=== PATIENT | female | born 1975 | race Caucasian/White ===

== ENCOUNTER 2016-10-18 16:51 | Emergency (ER) | payer SELFPAY ==
[~2016-10-18] VITALS: Ht 157.5 cm; Wt 78.0 kg
[~2016-10-18 16:51] MED LIST: CALC1TAB17 PO; IBUP100T7 PO; PREN-142 PO; TRAM50TA3 PO
[2016-10-18 20:43] VITALS: BP 103/69
== END 2016-10-18 21:04 | disposition home or self-care (01) ==
LOC: ER 21:02
DX: J02.9 Acute pharyngitis, unspecified (principal); R01.1 Cardiac murmur, unspecified; Z98.890 Other specified postprocedural states
CPT/HCPCS: 99283

== ENCOUNTER 2017-03-11 19:28 | Emergency (ER) | payer OTHER ==
[~2017-03-11] VITALS: Ht 165.1 cm; Wt 69.0 kg
[2017-03-12 04:26] VITALS: BP 94/68
== END 2017-03-12 04:28 | disposition home or self-care (01) ==
LOC: ER 20:38
DX: J06.9 Acute upper respiratory infection, unspecified (principal); H66.93 Otitis media, unspecified, bilateral
CPT/HCPCS: 81025; 99283

== ENCOUNTER 2017-04-28 21:03 | Emergency (ER) | payer OTHER ==
[~2017-04-28] VITALS: Ht 157.5 cm; Wt 79.0 kg
[2017-04-28] MEDS ORDERED: KETOROLAC 60MG/2ML VIAL IM ONE (23:45)
[2017-04-28 23:59] LABS: BASOPHILS % 0.9 % (0.0-2.0); EOSINOPHILS % 1.1 % (0.0-5.0); HEMOGLOBIN. 13.6 g/dL (12.0-16.0); LYMPHOCYTES % 38.4 % (20.0-50.0); MEAN CORPUSCULAR HEMOGLOBIN 29.9 pg (28.0-32.0); MEAN PLATELET VOLUME 8.4 fl (7.4-10.4); MONOCYTES % 9.4 % (2.0-8.0); NEUTROPHILS % 50.2 % (40.0-76.0); PLATELET 254 x1000/uL (130-400); RED BLOOD CELL COUNT 4.54 mill/uL (4.2-5.4); RED CELL DISTRIBUTION WIDTH 12.7 % (11.6-14.6)
[2017-04-29 00:36] LABS: CARBON DIOXIDE 28 mEq/L (21-32); CHLORIDE 108 mEq/L (98-107); TROPONIN I < 0.02 ng/mL (0.00-0.04)
[2017-04-29 01:30] VITALS: BP 134/76
== END 2017-04-29 01:52 | disposition home or self-care (01) ==
LOC: ER 21:04
DX: R07.89 Other chest pain (principal); F17.200 Nicotine dependence, unspecified, uncomplicated; Z90.49 Acquired absence of other specified parts of digestive tract; Z98.890 Other specified postprocedural states
CPT/HCPCS: 36415; 71010; 80053; 81025; 84484; 85025; 85379; 93005; 96372; 99285; J1885

== ENCOUNTER 2017-06-12 19:46 | Emergency (ER) | payer MEDICAID, OTHER ==
[~2017-06-12] VITALS: Ht 157.5 cm; Wt 82.0 kg
[2017-06-13 07:12] LABS: EOSINOPHILS % 0.7 % (0.0-5.0); HEMATOCRIT. 37.8 % (36.0-48.0); HEMOGLOBIN. 12.7 g/dL (12.0-16.0); LYMPHOCYTES % 30.7 % (20.0-50.0); MEAN CORPUSCULAR HEMOGLOBIN 29.4 pg (28.0-32.0); MEAN CORPUSCULAR VOLUME 87.1 fL (81.0-99.0); MEAN PLATELET VOLUME 7.8 fl (7.4-10.4); MONOCYTES % 6.7 % (2.0-8.0); NEUTROPHILS % 60.9 % (40.0-76.0); PLATELET 296 x1000/uL (130-400); RED BLOOD CELL COUNT 4.34 mill/uL (4.2-5.4); RED CELL DISTRIBUTION WIDTH 13.7 % (11.6-14.6)
[2017-06-13 07:24] LABS: CARBON DIOXIDE 29 mEq/L (21-32); CHLORIDE 106 mEq/L (98-107)
[2017-06-13 07:40] LABS: CLARITY URINE CLEAR (CLEAR); COLOR URINE YELLOW (YELLOW); KETONES URINE NEGATIVE (NEGATIVE); LEUKOCYTE ESTERASE URINE NEGATIVE (NEGATIVE); NITRITE URINE NEGATIVE (NEGATIVE); OCCULT BLOOD URINE TRACE (NEGATIVE); PROTEIN URINE NEGATIVE (NEGATIVE); SPECIFIC GRAVITY URINE 1.027 (1.005-1.030)
[2017-06-13] MEDS ORDERED: KETOROLAC 60MG/2ML VIAL IM STA (09:03)
[2017-06-13 10:16] VITALS: BP 107/70
== END 2017-06-13 10:18 | disposition home or self-care (01) ==
LOC: ER 19:46
DX: N39.0 Urinary tract infection, site not specified (principal); R10.31 Right lower quadrant pain; Z90.49 Acquired absence of other specified parts of digestive tract
CPT/HCPCS: 36415; 76770; 80053; 81001; 81025; 83690; 85025; 96372; 99285; J1885

== ENCOUNTER 2017-08-09 10:59 | Emergency (ER) | payer MEDICAID ==
[~2017-08-09] VITALS: Ht 157.5 cm; Wt 77.0 kg
[2017-08-09] MEDS ORDERED: IBUPROFEN 600MG TABLET PO ONE (14:45)
[2017-08-09 15:11] VITALS: BP 101/77
== END 2017-08-09 15:17 | disposition home or self-care (01) ==
LOC: ER 12:42
DX: J20.9 Acute bronchitis, unspecified (principal); R01.1 Cardiac murmur, unspecified; Z98.890 Other specified postprocedural states; Z90.49 Acquired absence of other specified parts of digestive tract
CPT/HCPCS: 71045; 81025; 87804; 93005; 99285

== ENCOUNTER 2018-03-31 19:50 | Emergency (ER) | payer MEDICAID ==
[~2018-03-31] VITALS: Ht 157.5 cm; Wt 75.0 kg
[2018-04-01] MEDS ORDERED: SODIUM CHLORIDE 0.9% 1,000 ML IV ONE (00:25)
[2018-04-01] MEDS ORDERED: KETOROLAC 30MG/ML VIAL IV STA (00:25)
[2018-04-01 01:06] LABS: EOSINOPHILS % 1.5 % (0.0-5.0); HEMATOCRIT. 39.7 % (36.0-48.0); HEMOGLOBIN. 13.4 g/dL (12.0-16.0); LYMPHOCYTES % 32.9 % (20.0-50.0); MEAN CORPUSCULAR HEMOGLOBIN 29.8 pg (28.0-32.0); MEAN CORPUSCULAR VOLUME 88.5 fL (81.0-99.0); MEAN PLATELET VOLUME 8.8 fl (7.4-10.4); MONOCYTES % 6.3 % (2.0-8.0); NEUTROPHILS % 58.3 % (40.0-76.0); PLATELET 328 x1000/uL (130-400); RED BLOOD CELL COUNT 4.49 mill/uL (4.2-5.4); RED CELL DISTRIBUTION WIDTH 13.1 % (11.6-14.6)
[2018-04-01 01:08] LABS: CHLORIDE 105 mEq/L (98-107)
[2018-04-01 03:48] VITALS: BP 106/65
== END 2018-04-01 03:55 | disposition home or self-care (01) ==
LOC: ER 21:34
DX: R07.89 Other chest pain (principal); E11.9 Type 2 diabetes mellitus without complications; Z79.899 Other long term (current) drug therapy
CPT/HCPCS: 36415; 71045; 80053; 81025; 84484; 85025; 85379; 93005; 96361; 96374; 99285; J1885; J7030

== ENCOUNTER 2021-07-25 10:36 | Emergency (ER) | payer MEDICAID ==
[~2021-07-25] VITALS: Ht 157.5 cm; Wt 71.0 kg
[~2021-07-25 10:36] MED LIST changes: +ALBU6.7H9 ORI; -CALC1TAB17 PO; +FAMO-135 PO; +GABA-532 PO; -IBUP100T7 PO; +METF-874 PO; +MIDO5TAB4 PO; +NAPR-677 PO; -PREN-142 PO; -TRAM50TA3 PO
[2021-07-25] MEDS ORDERED: ACETAMINOPHEN WITH CODEINE 300/30MG TABLET PO ONE (10:45)
[2021-07-25] MEDS ORDERED: BACITRACIN ZINC OINT UDPKT TOP ONE (10:45)
[2021-07-25] MEDS ORDERED: TETANUS, DIPHTHERIA, PERTUSSIS VAC/PF 0.5ML (>10YR OLD) IM ONE (10:45)
[2021-07-25 11:13] VITALS: BP 109/68
[2021-07-25] MEDS: LIDOCAINE HCL/PF 1% 10 MG/ML 5ML VIAL INFIL ONE ×3 (11:13→11:25)
[2021-07-25] MEDS ORDERED: LIDOCAINE HCL 1% 20ML VIAL (Pyxis) INJ INFIL NR (11:15)
[2021-07-25] MEDS ORDERED: BO1 TP (11:30)
== END 2021-07-25 12:23 | disposition home or self-care (01) ==
LOC: ER 10:36
DX: S61.211A Laceration without foreign body of left index finger without damage to nail, initial encounter (principal); X58.XXXA Exposure to other specified factors, initial encounter; Y93.89 Activity, other specified; Y92.89 Other specified places as the place of occurrence of the external cause; Y99.8 Other external cause status; E11.9 Type 2 diabetes mellitus without complications; I10 Essential (primary) hypertension; Z90.49 Acquired absence of other specified parts of digestive tract; Z79.899 Other long term (current) drug therapy
CPT/HCPCS: 12001; 73140; 90471; 90715; 99283; J3490

== ENCOUNTER 2021-07-27 18:11 | Emergency (ER) | payer MEDICAID ==
[~2021-07-27] VITALS: Ht 157.5 cm; Wt 71.0 kg
[~2021-07-27 18:11] MED LIST changes: +BO1 TP
[2021-07-27 19:06] VITALS: BP 152/68
== END 2021-07-27 19:07 | disposition home or self-care (01) ==
LOC: ER 18:39
DX: S61.211D Laceration without foreign body of left index finger without damage to nail, subsequent encounter (principal); X58.XXXD Exposure to other specified factors, subsequent encounter; E11.9 Type 2 diabetes mellitus without complications; I10 Essential (primary) hypertension; Z90.49 Acquired absence of other specified parts of digestive tract; Z79.899 Other long term (current) drug therapy
CPT/HCPCS: 99281

== ENCOUNTER 2021-08-13 10:17 | Emergency (ER) | payer MEDICAID ==
[~2021-08-13] VITALS: Ht 162.6 cm; Wt 71.0 kg
[2021-08-13 10:34] VITALS: BP 108/51
== END 2021-08-13 10:56 | disposition home or self-care (01) ==
LOC: ER 10:17
DX: Z48.02 Encounter for removal of sutures (principal)
CPT/HCPCS: 99281